=== PATIENT | male | born 1980 | race Caucasian/White ===

== ENCOUNTER 2017-09-13 20:40 | Emergency (ER) | payer OTHER ==
[~2017-09-13] VITALS: Ht 167.6 cm; Wt 80.7 kg
[2017-09-13 20:42] VITALS: Ht 167.6 cm; Wt 80.7 kg
[2017-09-13 23:19] VITALS: BP 122/86
== END 2017-09-13 23:18 | disposition other institution (70) ==
LOC: ED 20:40
DX: Z02.89 Encounter for other administrative examinations (principal)